=== PATIENT | female | born 1970 | race Caucasian/White ===

== ENCOUNTER 2017-12-14 10:25 | Day surgery (SDC) | payer OTHER ==
[2017-12-14] MEDS ORDERED: CIPROFLOXACIN 400MG/D5W 200 ML IVPB (10:30)
[2017-12-14] MEDS ORDERED: PROPOFOL 20 ML (12:24)
[2017-12-14] MEDS ORDERED: FENTAnyl 50 MCG/ML VIAL (12:25)
[2017-12-14] MEDS ORDERED: METOCLOPRAMIDE 10 MG INJ (12:25)
[2017-12-14] MEDS ORDERED: ONDANSETRON 4 MG INJ (12:25)
[2017-12-14] MEDS ORDERED: MIDAZOLAM 1 MG/ML 2 ML INJ (12:25)
[2017-12-14] MEDS ORDERED: CEFAZOLIN 1 GM INJ (12:47)
[2017-12-14] MEDS ORDERED: CIPROFLOXACIN 400MG/D5W 200 ML (12:50)
[2017-12-14] MEDS ORDERED: ACETAMINOPHEN 1000MG/100ML IV 100 ML (12:55)
[2017-12-14] MEDS ORDERED: HYDROmorphONE (0.2 MG/ML) 10ML SYG IV ×3 (14:30)
[2017-12-14] MEDS ORDERED: ONDANSETRON 4 MG INJ IV (14:30)
[2017-12-14] MEDS ORDERED: OXYCODONE/ACETAMINOPHEN (5/325) TAB PO (14:30)
[2017-12-14] MEDS ORDERED: HYDROCODONE/APAP (5/325) TAB PO (14:30)
== END 2017-12-14 16:35 | disposition home or self-care (01) ==
LOC: SDS 10:25
DX: N20.2 Calculus of kidney with calculus of ureter (principal); E78.5 Hyperlipidemia, unspecified
CPT/HCPCS: 52356; 74430; 87086; 88300